=== PATIENT | female | born 1955 | race Caucasian/White ===

== ENCOUNTER → 2018-10-06 | Outpatient (CLI) | payer MEDICARE | END | disposition home or self-care (01) | LOC: RAD 09:44 | PROVIDERS: ATTEND Internal Medicine Hematology & Oncology | DX: Z45.2 Encounter for adjustment and management of vascular access device (principal); C50.919 Malignant neoplasm of unspecified site of unspecified female breast | CPT/HCPCS: 36573; C1751 ==